=== PATIENT | male | born 1985 | race African-American/Black ===

== ENCOUNTER 2025-07-05 21:45 | Emergency (ER) | payer MEDICAID, OTHER ==
[~2025-07-05] VITALS: Ht 188 cm; Wt 111.8 kg
[2025-07-05 21:47] VITALS: BP 145/105; RESP 16; TEMP 97.4; O2SAT 96
[2025-07-05] MEDS ORDERED: MORPHINE SULFATE INJ 2 MG/ml SYRG IV ONE (22:15)
[2025-07-05] MEDS ORDERED: ONDANSETRON HCL 4 MG/2 ML VIAL IV ONE (22:15)
[2025-07-05 22:17] VITALS: PULSE 71
--- NOTE | 2025-07-05 22:17 | ED.PDOC ---
History of Present Illness HPI Comments 40-year-old male who came to ER for abdominal pain. Patient has a history of diabetes and pancreatitis. Claims he has good compliance with his medications, and his blood sugars is under control ( blood sugar 127 yesterday). Patient has chronic pancreatitis and he feels like he is having another flare-up that started yesterday. Complaining of abdominal pain, also of episode of nausea and vomiting and diarrhea. Patient is currently taking Phentermine that he has been taking for over a year, stopped, and started taking it again for the past 2 weeks REVIEW OF SYSTEMS: General: No fever, no chills, or fatigue HEENT: No sore throat, no earache, no congestion, no neck pain. Cardiac: No chest pain. No palpitations. Lungs: No shortness of breath, no cough. GI: (+) nausea, (+) vomiting, (+) diarrhea, no constipation, (+) abdominal pain : No dysuria, frequency, or urgency. No hematuria. Musculoskeletal: No joint pain , no joint swelling, no extremity edema. Skin: No rash, no itching. Neuro: No headache, no dizziness, no weakness EXAM: General: Awake, alert and oriented. Patient appears uncomfortable. Skin: Skin in warm, dry and intact. Appropriate color for ethnicity. HEENT: The head is normocephalic and atraumatic. Conjunctivae are clear without exudates or hemorrhage. Sclera is non-icteric. EOM are intact. No signs of nystagmus. Eyelids are normal in appearance without swelling or lesions. Oral mucosa is pink and moist Neck: The neck is supple with normal range of motion. No JVD. Cardiac: Heart rate and rhythm are normal. No murmurs, gallops, or rubs are auscultated. Respiratory: No signs of respiratory distress. Lung sounds are clear in all lobes bilaterally without rales, rhonchi, or wheezes. Abdominal: Abdomen is soft, epigastric tenderness without distention. Extremities: Upper and lower extremities are atraumatic in appearance without deformity or edema. Neurological: The patient is awake, alert and oriented to person, place, and time with normal speech. Speech is clear. There is no facial asymmetry. Chief Complaint: Abdominal Pain Time Seen by MD: 22:17 Reviewed Notes: Nurses Notes Information Source: Patient Mode of Arrival: Ambulatory Past Medical History PAST MEDICAL HISTORY: DM Past Medical History (Other): Pancreatitis Surgical History: Denies all surgeries Family History Family History: Reviewed,noncontributory to illness Social History Smoker: Non-Smoker Alcohol: Denies ETOH Use Drugs: Denies Drug Use Lives In: Home Was a procedure done? Was a procedure done?: No EKG EKG : Pulse Rate (adult): 71 Cardiac Rhythm: NSR Differential Dx Considerations may include: Differential diagnoses considered include: Diabetic ketoacidosis, Abdominal aortic aneurysm, ND, esophageal rupture, intestinal obstruction, mesenteric ischemia, perforated viscus or solid organ rupture, CHF with hepatomegaly, pneumonia, abscess, appendicitis, biliary disease, diverticulitis, gastritis, gastroenteritis, hepatitis, hernia, inflammatory bowel disease, pancreatitis, peptic ulcer disease, urinary tract infection, ureteral colic, constipation, GERD, irritable syndrome, abdominal wall pain, nonspecific abdominal pain, herpes zoster, nephrolithiasis. X-Ray, Labs, Meds, VS Vital Signs Date Time Temp Pulse Resp B/P (MAP) Pulse Ox O2 Delivery O2 Flow Rate FiO2 07/05/25 22:17 71 07/05/25 21:47 97.4 75 16 145/105 96 97.4 Lab Test 07/05/25 22:27 Range/Units White Blood Count 16.0 H 4.4-10.8 10^3/uL Red Blood Count 5.90 4.5-5.90 10^6/uL Hemoglobin 14.5 13.5-17.5 g/dL Hematocrit 43.9 41.0-53.0 % Mean Corpuscular Volume 74.3 L 80.0-100.0 fL Mean Corpuscular Hemoglobin 24.5 L 28.0-32.0 pg Mean Corpuscular Hemoglobin Concent 33.0 32.0-36.0 g/dL Red Cell Distribution Width 14.6 H 11.8-14.3 % Platelet Count 328 140-450 10^3/uL Mean Platelet Volume 6.8 L 6.9-10.8 fL Neutrophils (%) (Auto) 77.7 37.0-80.0 % Lymphocytes (%) (Auto) 12.3 10.0-50.0 % Monocytes (%) (Auto) 7.0 0.0-12.0 % Eosinophils (%) (Auto) 2.8 0.0-7.0 % Basophils (%) (Auto) 0.2 0.0-2.0 % Neutrophils # (Auto) 12.5 H 1.6-8.6 10 ^3/uL Lymphocytes # (Auto) 2.0 0.4-5.4 10 ^3/uL Monocytes # (Auto) 1.1 0-1.3 10 ^3/uL Eosinophils # (Auto) 0.5 0-0.8 10 ^3/uL Basophils # (Auto) 0 0-0.2 10 ^3/uL Nucleated Red Blood Cells 0.0 % Sodium Level 141 136-145 mmol/L Potassium Level 4.3 3.5-5.1 mmol/L Chloride Level 103 98-107 mmol/L Carbon Dioxide Level 28 20-31 mmol/L Anion Gap 10 5-15 Blood Urea Nitrogen 7 L 9-23 mg/dL Creatinine 0.99 0.700-1.30 mg/dL Glomerular Filtration Rate Calc 98 >90 mL/min BUN/Creatinine Ratio 7.1 L 10.0-20.0 Serum Glucose 110 H 74-106 mg/dL Lactic Acid Level 1.2 0.4-2.0 mmol/L Calcium Level 10.0 8.7-10.4 mg/dL Total Bilirubin 1.1 H 0.2-1.0 mg/dL Aspartate Amino Transferase (AST) 16 13-40 U/L Alanine Aminotransferase (ALT) 24 7-40 U/L Alkaline Phosphatase 128 H 46-116 U/L Troponin I High Sensitivity < 3 L </=54 ng/L Total Protein 7.6 5.7-8.2 g/dL Albumin 4.9 H 3.2-4.8 g/dL Lipase 29 12-53 U/L Time of 1ST Reevaluation: 22:11 Reevaluation 1ST: Unchanged Patient Education/Counseling: Need For Follow Up Family Education/Counseling: No Family Present SEPSIS Sepsis Screen Date sepsis recognized/suspect: Jul 05, 2025 Time Sepsis recognized/suspect: 2152 Recent Procedure: No (T) On Antibiotic Therapy: No Respiratory Rate >20: No Heart Rate >90: No Temp<36 C (96.8 F) or >38.3 C: No SBP <90 or MAP <65 mmHG: No New Acute Mental Status Change: No Is the patient on CPAP, BIPAP,: No Physician Orders Urinalysis (07/05/25 21:52) Urinalysis (07/05/25 22:07) Chest Xray 1 View (07/05/25 22:07) Electrocardigram (07/05/25 22:07) Ct Ab Pel With Iv Con Only (07/05/25 22:09) Drug Screen (07/06/25 00:01) Vital Signs Date Time Temp Pulse Resp B/P (MAP) Pulse Ox O2 Delivery O2 Flow Rate FiO2 07/05/25 22:17 71 07/05/25 21:47 97.4 75 16 145/105 96 97.4 Laboratory Tests Test 07/05/25 22:27 Lactic Acid Level 1.2 mmol/L (0.4-2.0) White Blood Count 16.0 10^3/uL (4.4-10.8) H Departure 1 Departure Time of Disposition: 00:46 Impression: Primary Impression: Abdominal pain Additional Impressions: Nausea & vomiting Leukocytosis Eloped from emergency department Disposition: LEFT AWOL/ELOPED Condition: Other Comments Patient was seen and evaluated. Plan of care discussed with the patient and his . Patient eloped in the emergency department prior to completing treatment and workup. Critical Care Note Critical Care Time?: No Stability Stability form required: No Heart Score Heart Score: Heart Score Response (Comments) Value History N/A 0 EKG N/A 0 Age N/A 0 Risk Factors N/A 0 Troponin N/A 0 Total 0 I personally scribed for DIEGO SIDDIQUI MD ([email or web address]) on 07/05/25 at 22:17. Electronically submitted by Isaiah Cowart ([employer]). I personally scribed for DIEGO SIDDIQUI MD ([email or web address]) on 07/05/25 at 22:17. Electronically submitted by Isaiah Cowart ([employer]). DIEGO SIDDIQUI MD Jul 05, 2025 22:17
[2025-07-05 22:46] LABS: Nucleated Red Blood Cells % 0.0 %
[2025-07-05 22:49] LABS: Hematocrit 43.9 % (41.0-53.0); Hemoglobin 14.5 g/dL (13.5-17.5); Mean Corpuscular Hemoglobin 24.5 pg (28.0-32.0); Mean Corpuscular Volume 74.3 fL (80.0-100.0)
[2025-07-05 23:03] LABS: Alanine Aminotransferase 24 U/L (7-40); Anion Gap 10 (5-15); BUN/Creatinine Ratio 7.1 (10.0-20.0); Calcium 10.0 mg/dL (8.7-10.4); Carbon Dioxide 28 mmol/L (20-31); Chloride 103 mmol/L (98-107); Lipase 29 U/L (12-53); Potassium 4.3 mmol/L (3.5-5.1); Sodium 141 mmol/L (136-145); Total Protein 7.6 g/dL (5.7-8.2)
[2025-07-05 23:04] LABS: Bilirubin, Total 1.1 mg/dL (0.2-1.0)
[2025-07-05 23:05] LABS: Albumin 4.9 g/dL (3.2-4.8); Alkaline Phosphatase 128 U/L (46-116); Blood Urea Nitrogen 7 mg/dL (9-23); Glucose 110 mg/dL (74-106)
== END 2025-07-06 00:40 | disposition left against medical advice (07) ==
LOC: ER 21:45
DX: D72.829 Elevated white blood cell count, unspecified (principal); R10.9 Unspecified abdominal pain; R11.2 Nausea with vomiting, unspecified; E11.9 Type 2 diabetes mellitus without complications; Z87.19 Personal history of other diseases of the digestive system
CPT/HCPCS: 36415; 80053; 81025; 83605; 83690; 84484; 85025